=== PATIENT | female | born 1940 | race African-American/Black ===

== ENCOUNTER 2024-10-14 23:43 | Emergency (ER) | payer BC, OTHER ==
[~2024-10-14] VITALS: Ht 170.2 cm; Wt 53.0 kg
[2024-10-14 23:44] VITALS: O2SAT 100
[2024-10-15 00:43] LABS: CHLORIDE 99 mEq/L (98-107); POTASSIUM 3.8 mEq/L (3.5-5.1); SODIUM 134 mEq/L (136-145)
[2024-10-15 00:44] LABS: CARBON DIOXIDE 25 mEq/L (21-32)
[2024-10-15 00:45] LABS: BASOPHILS % 1.1 % (0.0-2.0); CALCIUM 10.8 mg/dL (8.7-10.4); EOSINOPHILS % 0.1 % (0.0-5.0); HEMATOCRIT. 43.4 % (36.0-48.0); LYMPHOCYTES % 38.2 % (20.0-50.0); MEAN CORPUSCULAR HEMOGLOBIN 30.9 pg (28.0-32.0); MEAN CORPUSCULAR HGB CONC 34.5 g/dL (31.0-37.0); MEAN CORPUSCULAR VOLUME 89.6 fL (81.0-99.0); MEAN PLATELET VOLUME 7.3 fl (7.4-10.4); NEUTROPHILS % 50.6 % (40.0-76.0); PLATELET 452 x1000/uL (130-400); RED BLOOD CELL COUNT 4.85 mill/uL (4.2-5.4); RED CELL DISTRIBUTION WIDTH 12.8 % (11.6-14.6); WHITE BLOOD COUNT 6.8 x1000/uL (4.5-11.0)
[2024-10-15 00:49] LABS: GLUCOSE 244 mg/dL (70-105)
[2024-10-15 00:50] LABS: UREA NITROGEN BLOOD 13 mg/dL (9-23)
[2024-10-15 00:52] LABS: TROPONIN I HIGH SENSITIVITY 8 ng/L (3.0-34)
[2024-10-15 01:07] LABS: ETHANOL BLOOD < 10 mg/dL (<10)
[2024-10-15 02:07] LABS: PARTIAL THROMBOPLASTIN TIME 26.2 sec (23.4-31.0); PROTHROMBIN TIME 10.6 sec (9.6-11.0)
[2024-10-15 04:13] LABS: CLARITY URINE TURBID (CLEAR); COLOR URINE YELLOW (YELLOW); GLUCOSE URINE 1+ (NEGATIVE); KETONES URINE NEGATIVE (NEGATIVE); LEUKOCYTE ESTERASE URINE 1+ (NEGATIVE); NITRITE URINE NEGATIVE (NEGATIVE); OCCULT BLOOD URINE TRACE (NEGATIVE); PH URINE 5.5 (4.5-8.0); PROTEIN URINE 3+ (NEGATIVE); SPECIFIC GRAVITY URINE 1.012 (1.005-1.030); UROBILINOGEN URINE 0.2 E.U./dL (0.2-1.0)
[2024-10-15] MEDS: SODIUM CHLORIDE 0.9% 500 ML IV ONE (04:15)
[2024-10-15 04:21] LABS: *AMPHETAMINES SCREEN URINE NEGATIVE (NEGATIVE); *BENZODIAZEPINES SCREEN URINE NEGATIVE (NEGATIVE)
[2024-10-15 04:22] LABS: *BARBITURATES SCREEN URINE NEGATIVE (NEGATIVE); *COCAINE SCREEN URINE NEGATIVE (NEGATIVE); CANNABINOID URINE SCREEN PRESUMPTIVE POSITIVE (NEGATIVE); ECSTASY MDMA SCREEN URINE NEGATIVE (NEGATIVE); METHADONE URINE SCREEN NEGATIVE (NEGATIVE); OPIATES URINE SCREEN NEGATIVE (NEGATIVE); PHENCYCLIDINE URINE SCREEN NEGATIVE (NEGATIVE)
[2024-10-15] MEDS ORDERED: NITROFURANTOIN 100MG M/M CAPSULE PO NR (04:30)
[2024-10-15 04:51] LABS: WBC URINE 25-50 /hpf (0-2)
[2024-10-15 04:52] LABS: RBC URINE NONE SEEN /hpf (0-2); SQUAMOUS EPITHELIAL CELL URINE 1+ /lpf (RARE/1+)
[2024-10-15 04:53] LABS: BACTERIA URINE 4+
[2024-10-15 09:03] VITALS: BP 154/93; PULSE 96; RESP 20; TEMP 36.7; O2SAT 100
== END 2024-10-15 09:31 | disposition short-term general hospital (02) ==
LOC: ER 23:43 → EDBEDREQ 10-15 05:59 → ER 10-15 09:31
DX: R53.1 Weakness (principal); R62.7 Adult failure to thrive; N39.0 Urinary tract infection, site not specified; E11.65 Type 2 diabetes mellitus with hyperglycemia; I10 Essential (primary) hypertension; F17.200 Nicotine dependence, unspecified, uncomplicated; Z88.0 Allergy status to penicillin; Z79.899 Other long term (current) drug therapy
CPT/HCPCS: 36415; 71045; 80048; 80305; 80320; 81003; 83880; 84484; 85025; 93005; 96360; 99285; G0480

== ENCOUNTER 2025-02-27 10:53 | Emergency (ER) | payer OTHER ==
[~2025-02-27] VITALS: Ht 167.6 cm; Wt 55.0 kg
[2025-02-27 10:56] VITALS: O2SAT 98
[2025-02-27 11:25] LABS: BASOPHILS % 0.9 % (0.0-2.0); EOSINOPHILS % 0.7 % (0.0-5.0); HEMATOCRIT. 41.6 % (36.0-48.0); HEMOGLOBIN. 14.1 g/dL (12.0-16.0); LYMPHOCYTES % 39.6 % (20.0-50.0); MEAN PLATELET VOLUME 6.8 fl (7.4-10.4); MONOCYTES % 7.9 % (2.0-8.0); NEUTROPHILS % 50.9 % (40.0-76.0); PLATELET 312 x1000/uL (130-400); RED BLOOD CELL COUNT 4.48 mill/uL (4.2-5.4); RED CELL DISTRIBUTION WIDTH 13.8 % (11.6-14.6)
[2025-02-27] MEDS: MORPHINE SULFATE 4 MG/ML INJ (FOR IV/IM USE) IV ONE (11:42)
[2025-02-27] MEDS: KETOROLAC 15MG/ML VIAL IV ONE (11:43)
[2025-02-27 11:46] LABS: CREATININE 1.0 mg/dL (0.6-1.0); UREA NITROGEN BLOOD 13 mg/dL (9-23)
[2025-02-27] MEDS ORDERED: DEXTROSE 50% WATER 50ML SYRINGE IV PRN (13:45)
[2025-02-27] MEDS ORDERED: ACETAMINOPHEN 325MG TABLET PO PRN (14:00)
[2025-02-27] MEDS ORDERED: ONDANSETRON HCL 4MG/2ML INJ IV PRN (14:00)
[2025-02-27] MEDS ORDERED: MAGNESIUM/ALUMINUM HYDROXIDE/SIMETHICONE 30ML UDC PO PRN (14:00)
[2025-02-27] MEDS ORDERED: CLONIDINE 0.1MG TABLET PO PRN (14:00)
[2025-02-27] MEDS ORDERED: IPRATROPIUM/ALBUTEROL 0.5-3(2.5)MG/3ML NEB HHN PRN (14:00)
[2025-02-27] MEDS ORDERED: ACETAMINOPHEN 650MG/20.3ML UDC GT PRN (14:00)
[2025-02-27] MEDS ORDERED: GUAIFENESIN 200MG/10ML SUGAR FREE UDC PO PRN (14:00)
[2025-02-27] MEDS ORDERED: DOCUSATE SODIUM 100MG CAPSULE PO PRN (14:00)
[2025-02-27] MEDS ORDERED: NALOXONE HCL 0.4MG/ML VIAL IV PRN (14:15)
[2025-02-27] MEDS ORDERED: HYDROCODONE/ACETAMINOPHEN 5/325MG TABLET PO PRN (14:15)
[2025-02-27] MEDS ORDERED: ENOXAPARIN 30MG/0.3ML SYR SUBCUT SCH (14:30)
[2025-02-27] MEDS: HYDRALAZINE 20MG/ML VIAL IV PRN (14:51)
[2025-02-27 15:05] LABS: INR 1.0
[2025-02-27 15:07] VITALS: TEMP 36.8
[2025-02-27] MEDS: GABAPENTIN 100MG CAPSULE PO SCH (15:11)
[2025-02-27 15:14] LABS: TROPONIN I HIGH SENSITIVITY 5 ng/L (3.0-34)
[2025-02-27 15:15] LABS: PHOSPHORUS 2.9 mg/dL (2.5-4.9)
[2025-02-27 15:45] VITALS: BP 137/50; PULSE 93; RESP 18; O2SAT 99
[2025-02-27] MEDS ORDERED: BLOOD SUGAR DIAGNOSTIC STRIP TEST SCH (17:00)
[2025-02-27] MEDS ORDERED: INSULIN LISPRO 100 UNITS/ML SUBCUT SCH (18:20)
[2025-02-27] MEDS ORDERED: AMLODIPINE 2.5MG TABLET PO SCH (21:00)
[2025-02-28] MEDS ORDERED: MULTIVITAMINS,THER W-MINERALS TABLET PO SCH (09:00)
[2025-02-28] MEDS ORDERED: PANTOPRAZOLE SODIUM 40 MG/VIAL IV SCH (09:00)
== END 2025-02-27 16:03 | disposition short-term general hospital (02) ==
LOC: ER 10:53 → CANBEDREQ 15:22 → ER 16:03
DX: R26.2 Difficulty in walking, not elsewhere classified (principal); E11.40 Type 2 diabetes mellitus with diabetic neuropathy, unspecified; E78.00 Pure hypercholesterolemia, unspecified; I10 Essential (primary) hypertension; Z88.0 Allergy status to penicillin
CPT/HCPCS: 99285; 93970; 96374; 96375; 80048; 82550; 83036; 83735; 84100; 85025; 85610; 85651; 85730; 84484; 36415; 73502; J1885; J0360; J2270; A4606

== ENCOUNTER 2025-02-28 23:51 | Emergency (ER) | payer OTHER ==
[~2025-02-28] VITALS: Ht 182.9 cm; Wt 55.0 kg
[2025-02-28 23:58] VITALS: O2SAT 100
[2025-03-01 00:55] LABS: BASOPHILS % 0.7 % (0.0-2.0); EOSINOPHILS % 1.0 % (0.0-5.0); HEMATOCRIT. 39.9 % (36.0-48.0); HEMOGLOBIN. 13.6 g/dL (12.0-16.0); LYMPHOCYTES % 44.5 % (20.0-50.0); MEAN PLATELET VOLUME 7.0 fl (7.4-10.4); MONOCYTES % 10.3 % (2.0-8.0); NEUTROPHILS % 43.5 % (40.0-76.0); PLATELET 335 x1000/uL (130-400); RED BLOOD CELL COUNT 4.37 mill/uL (4.2-5.4); RED CELL DISTRIBUTION WIDTH 13.6 % (11.6-14.6)
[2025-03-01 01:39] LABS: INR 1.0
[2025-03-01 01:43] LABS: CREATININE 0.9 mg/dL (0.6-1.0)
[2025-03-01 01:44] LABS: TROPONIN I HIGH SENSITIVITY 5 ng/L (3.0-34); UREA NITROGEN BLOOD 15 mg/dL (9-23)
[2025-03-01] MEDS: ASPIRIN 325MG TABLET PO NR (01:45)
[2025-03-01] MEDS: SODIUM CHLORIDE 0.9% 500 ML IV ONE (01:46)
[2025-03-01 02:56] VITALS: TEMP 36.5
[2025-03-01 03:58] VITALS: BP 187/91; PULSE 89; RESP 12; O2SAT 99
[2025-03-01] MEDS ORDERED: IOHEXOL-350 100 ML BOTTLE ONE (06:12)
== END 2025-03-01 04:25 | disposition short-term general hospital (02) ==
LOC: ER 23:51 → CMPBEDREQ 03-01 07:35
DX: G45.9 Transient cerebral ischemic attack, unspecified (principal); E11.9 Type 2 diabetes mellitus without complications; E78.00 Pure hypercholesterolemia, unspecified; I10 Essential (primary) hypertension; Z88.0 Allergy status to penicillin; Z87.440 Personal history of urinary (tract) infections
CPT/HCPCS: 99291; 70496; 71045; 36415; 70498; 93005; 70450; 80048; 83735; 85025; 85610; 85730; 84484; Q9967